=== PATIENT | male | born 1970 | race Caucasian/White ===

== ENCOUNTER 2022-02-20 15:53 | Emergency (ER) | payer MEDICAID ==
[~2022-02-20] VITALS: Ht 185.4 cm; Wt 70.3 kg
[2022-02-20] MEDS ORDERED: TDAP DIPH,PERTUSS,TET VAC/PF 0.5 ML DISP.SYRIN IM ONE ×2 (16:11→16:15)
[2022-02-20] MEDS ORDERED: NEOMY/BACITRA/POLYMYXIN B OINT UD PACKET TP ONE ×2 (16:11→16:15)
[2022-02-20] MEDS ORDERED: LIDOCAINE HCL 1% 20 ML VIAL ONE (16:11)
[2022-02-20] MEDS ORDERED: ACETAMINOPHEN ES 500 MG TABLET PO ONE (16:15)
[2022-02-20] MEDS ORDERED: HYDROCODONE/APAP 5-325MG TABLET PO ONE (16:15)
[2022-02-20] MEDS ORDERED: LIDOCAINE HCL 1% 20 ML VIAL TP ONE (16:15)
[2022-02-20] MEDS ORDERED: ACETAMINOPHEN ES 500 MG TABLET ONE (16:27)
--- NOTE | 2022-02-20 17:24 | NUR ---
Patient discharged to home in stable condition via wheelchair. Written and verbal after care instructions given. Patient verbalizes understanding and compliance of instructions. Stressed follow up with primary doctor or return to ER for worsening s/s. 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
== END 2022-02-20 17:24 | disposition home or self-care (01) ==
LOC: ER 15:53
DX: S81.811A Laceration without foreign body, right lower leg, initial encounter (principal); W29.8XXA Contact with other powered hand tools and household machinery, initial encounter; Y93.H9 Activity, other involving exterior property and land maintenance, building and construction; Y92.89 Other specified places as the place of occurrence of the external cause
CPT/HCPCS: 99283; 12002; 73590; 90715; 90471; J3490; A4663; A9150

== ENCOUNTER 2022-02-23 15:32 | Emergency (ER) | payer MEDICAID ==
[~2022-02-23] VITALS: Ht 185.4 cm; Wt 70.3 kg
--- NOTE | 2022-02-23 16:40 | NUR ---
PT DID NOT WANT TO WAIT LONGER. PT WAS SEEN BY DR JEREZ PREVIOUSLY. LEFT WITHOUT DISCHARGE PAPERS AND INSTRUCTIONS.
[2022-02-23 16:42] VITALS: BP 117/76
== END 2022-02-23 16:44 | disposition home or self-care (01) ==
LOC: ER 15:32
DX: S81.811D Laceration without foreign body, right lower leg, subsequent encounter (principal); W20.8XXD Other cause of strike by thrown, projected or falling object, subsequent encounter; M79.89 Other specified soft tissue disorders
CPT/HCPCS: A4663

== ENCOUNTER 2022-03-16 10:37 | Emergency (ER) | payer MEDICAID ==
[~2022-03-16] VITALS: Ht 185.4 cm; Wt 70.3 kg
--- NOTE | 2022-03-16 12:58 | NUR ---
Gave pt d/c instructions, pt verbalized understanding.
== END 2022-03-16 13:04 | disposition home or self-care (01) ==
LOC: ER 10:37
DX: S81.811D Laceration without foreign body, right lower leg, subsequent encounter (principal); X58.XXXD Exposure to other specified factors, subsequent encounter; M25.571 Pain in right ankle and joints of right foot; M79.671 Pain in right foot; R22.41 Localized swelling, mass and lump, right lower limb
CPT/HCPCS: 73610; 73630; A4663

== ENCOUNTER 2022-05-26 06:30 | Emergency (ER) | payer MEDICAID, OTHER ==
[~2022-05-26] VITALS: Ht 185.4 cm; Wt 72.6 kg
[2022-05-26] MEDS: ASPIRIN 325 MG TABLET PO ONE (06:46)
[2022-05-26] MEDS ORDERED: NITROGLYCERIN 0.4 MG/TAB BOTTLE SL ONE (06:50)
[2022-05-26] MEDS ORDERED: ASPIRIN 325 MG TABLET ONE (06:50)
[2022-05-26] MEDS: NITROGLYCERIN 0.4 MG/TAB BOTTLE SL ONE (06:52)
--- NOTE | 2022-05-26 06:57 | NUR ---
After 1st dose of nitro SL, CP is 5/10 pressure pain.
[2022-05-26 07:02] LABS: HEMATOCRIT 40.6 % (36.7-47.1); MEAN CORPUSCULAR HEMOGLOBIN 30.4 uug (23.8-33.4); PLATELET COUNT (AUTO) 186 K/uL (152-348)
--- NOTE | 2022-05-26 07:03 | NUR ---
After 2nd dose of nitro SL, patient states pain went back up 7/10 zafar pain. Gave 3rd dose of nitro SL.
[2022-05-26 07:10] LABS: CARBON DIOXIDE 27 mmol/L (21-32); CHLORIDE 105 mmol/L (98-107); GLUCOSE 104 mg/dL (74-106); UREA NITROGEN, BLOOD 18 mg/dL (7-18)
[2022-05-26] MEDS ORDERED: LORAZEPAM 0.5 MG TABLET ONE (07:22)
[2022-05-26] MEDS: LORAZEPAM 0.5 MG TABLET PO ONE (07:25)
[2022-05-26] MEDS ORDERED: ENOXAPARIN SODIUM 80 MG/0.8 ML DISP.SYRIN SQ ONE (07:30)
[2022-05-26] MEDS ORDERED: MORPHINE SULFATE 4 MG/1 ML DISP.SYRIN IV ONE (07:30)
[2022-05-26] MEDS ORDERED: NITROGLYCERIN OINT 1 GM PACKET TP ONE (07:30)
[2022-05-26] MEDS: IV NORMAL SALINE 500 ML BAG IV ONE (08:20)
[2022-05-26] MEDS ORDERED: NITR0.4T SL (09:03)
[2022-05-26] MEDS ORDERED: ASPI81TA31 PO (09:03)
[2022-05-26 10:44] VITALS: BP 124/74
== END 2022-05-26 10:46 | disposition home or self-care (01) ==
LOC: ER 06:30
DX: R07.9 Chest pain, unspecified (principal); R94.31 Abnormal electrocardiogram [ECG] [EKG]; F17.290 Nicotine dependence, other tobacco product, uncomplicated
CPT/HCPCS: 99285; 96360; 71046; 80048; 83880; 85025; 84484 ×2; 36415; 93005 ×2; J7040; A4663